=== PATIENT | male | born 1975 | race Caucasian/White ===

== ENCOUNTER 2024-05-18 15:43 | Emergency (ER) | payer BC ==
[~2024-05-18] VITALS: Ht 170.2 cm; Wt 85.0 kg
[2024-05-18 15:48] VITALS: O2SAT 95
[2024-05-18 23:04] LABS: BASOPHILS % 0.7 % (0.0-2.0); EOSINOPHILS % 0.8 % (0.0-5.0); HEMATOCRIT. 45.8 % (42.0-52.0); HEMOGLOBIN. 15.3 g/dL (14.0-18.0); MEAN CORPUSCULAR HEMOGLOBIN 29.8 pg (28.0-32.0); MEAN CORPUSCULAR HGB CONC 33.3 g/dL (31.0-37.0); MEAN CORPUSCULAR VOLUME 89.4 fL (80.0-94.0); MEAN PLATELET VOLUME 7.5 fl (7.4-10.4); MONOCYTES % 10.7 % (2.0-8.0); NEUTROPHILS % 66.8 % (40.0-76.0); PLATELET 333 x1000/uL (130-400); RED BLOOD CELL COUNT 5.12 mill/uL (4.7-6.1); RED CELL DISTRIBUTION WIDTH 14.2 % (11.6-14.6); WHITE BLOOD COUNT 13.3 x1000/uL (4.5-11.0)
[2024-05-18 23:06] LABS: CHLORIDE 107 mEq/L (98-107); POTASSIUM 3.9 mEq/L (3.5-5.1); SODIUM 137 mEq/L (136-145)
[2024-05-18 23:07] LABS: CARBON DIOXIDE 23 mEq/L (21-32)
[2024-05-18 23:08] LABS: CALCIUM 9.3 mg/dL (8.7-10.4)
[2024-05-18 23:12] LABS: CREATININE 0.9 mg/dL (0.6-1.3); GLUCOSE 131 mg/dL (70-105); UREA NITROGEN BLOOD 12 mg/dL (9-23)
[2024-05-18 23:15] LABS: TROPONIN I HIGH SENSITIVITY 5 ng/L (3.0-53)
[2024-05-19] MEDS ORDERED: LEVO-65 MT (04:57)
[2024-05-19 05:30] VITALS: BP 166/95; PULSE 95; RESP 16; TEMP 36.66960; O2SAT 96
== END 2024-05-19 05:31 | disposition home or self-care (01) ==
LOC: ER 15:43
DX: J40 Bronchitis, not specified as acute or chronic (principal); Z91.148 Patient's other noncompliance with medication regimen for other reason
CPT/HCPCS: 36415; 71045; 80048; 84484; 85025; 93005; 99285